=== PATIENT | female | born 1995 | race African-American/Black ===

== ENCOUNTER 2018-09-07 20:24 | Emergency (ER) | payer MEDICAID ==
[~2018-09-07] VITALS: Ht 167.6 cm; Wt 65.0 kg
[~2018-09-07 20:24] MED LIST: PROAIR HFA; QVAR INHALER
[2018-09-08 00:48] LABS: CLARITY URINE CLOUDY (CLEAR); COLOR URINE YELLOW (YELLOW); KETONES URINE TRACE (NEGATIVE); LEUKOCYTE ESTERASE URINE NEGATIVE (NEGATIVE); NITRITE URINE NEGATIVE (NEGATIVE); OCCULT BLOOD URINE NEGATIVE (NEGATIVE); PH URINE 7.5 (4.5-8.0); PROTEIN URINE NEGATIVE (NEGATIVE); SPECIFIC GRAVITY URINE 1.032 (1.005-1.030)
[2018-09-08 01:12] VITALS: BP 118/71
== END 2018-09-08 01:14 | disposition home or self-care (01) ==
LOC: ER 20:24
DX: S00.83XA Contusion of other part of head, initial encounter (principal); J45.909 Unspecified asthma, uncomplicated; R11.2 Nausea with vomiting, unspecified; F12.10 Cannabis abuse, uncomplicated; W22.8XXA Striking against or struck by other objects, initial encounter; Y93.89 Activity, other specified; Y92.89 Other specified places as the place of occurrence of the external cause; Y99.8 Other external cause status
CPT/HCPCS: 81025; 99283

== ENCOUNTER 2019-12-07 12:22 | Emergency (ER) | payer MEDICAID ==
[~2019-12-07] VITALS: Ht 167.6 cm; Wt 64.0 kg
[2019-12-07] MEDS ORDERED: ONDANSETRON 4MG ODT PO STA (15:53)
[2019-12-07 16:11] LABS: CLARITY URINE CLEAR (CLEAR); COLOR URINE YELLOW (YELLOW); KETONES URINE 3+ (NEGATIVE); LEUKOCYTE ESTERASE URINE TRACE (NEGATIVE); NITRITE URINE NEGATIVE (NEGATIVE); OCCULT BLOOD URINE NEGATIVE (NEGATIVE); PH URINE 6.5 (4.5-8.0); PROTEIN URINE NEGATIVE (NEGATIVE); SPECIFIC GRAVITY URINE 1.019 (1.005-1.030); UROBILINOGEN URINE 0.2 E.U./dL (0.2-1.0)
[2019-12-07 16:15] LABS: BASOPHILS % 1.1 % (0.0-2.0); EOSINOPHILS % 0.4 % (0.0-5.0); HEMATOCRIT. 44.1 % (36.0-48.0); HEMOGLOBIN. 14.6 g/dL (12.0-16.0); LYMPHOCYTES % 25.1 % (20.0-50.0); MEAN CORPUSCULAR HEMOGLOBIN 27.2 pg (28.0-32.0); MEAN PLATELET VOLUME 10.2 fl (7.4-10.4); MONOCYTES % 4.8 % (2.0-8.0); NEUTROPHILS % 68.6 % (40.0-76.0); PLATELET 173 x1000/uL (130-400); RED BLOOD CELL COUNT 5.38 mill/uL (4.2-5.4); RED CELL DISTRIBUTION WIDTH 13.8 % (11.6-14.6)
[2019-12-07 16:23] LABS: PROTHROMBIN TIME 11.3 sec (9.6-11.0)
[2019-12-07 16:25] LABS: CHLORIDE 105 mEq/L (98-107); HCG SCREEN NEGATIVE
[2019-12-07] MEDS ORDERED: KETOROLAC 60MG/2ML VIAL IM ONE (17:15)
[2019-12-07 17:20] VITALS: BP 119/91
== END 2019-12-07 17:31 | disposition home or self-care (01) ==
LOC: ER 12:22
DX: N39.0 Urinary tract infection, site not specified (principal); R51 Headache; F12.90 Cannabis use, unspecified, uncomplicated
CPT/HCPCS: 36415; 74021; 80053; 81003; 83690; 84703; 85025; 85610; 96372; 99284; J1885; Q0162